=== PATIENT | female | born 1960 | race Caucasian/White ===

== ENCOUNTER → 2020-04-02 | Outpatient (CLI) | payer OTHER ==
--- NOTE | 2020-04-03 10:58 | MM ---
Reason for exam: screening (asymptomatic). Last mammogram was performed 13 years and 11 months ago. History: Benign left mammotome panel of the left breast, May 12, 2006. Cancelled Left Mammotome of the left breast, May 12, 2006. Taking hormonal contraceptives for 15 years. Physical Findings: A clinical breast exam by your physician is recommended on an annual basis and results should be correlated with mammographic findings. MG 3D Screening Mammo W/Cad Bilateral CC and MLO view(s) were taken. Prior study comparison: January 29, 2019, mammogram. November 21, 2017, mammogram. The breast tissue is heterogeneously dense. This may lower the sensitivity of mammography. There are benign appearing round calcifications bilaterally. Previous mammotome biopsy in the left breast. There is chronic nodularity in the right breast. There is no discrete abnormality. There is no discrete abnormality. ASSESSMENT: Benign, BI-RAD 2 RECOMMENDATION: Routine screening mammogram of both breasts in 1 year.
== END | disposition home or self-care (01) ==
LOC: RADMAMWWP 11:11
PROVIDERS: ATTEND Family Medicine
DX: Z12.31 Encounter for screening mammogram for malignant neoplasm of breast (principal)
CPT/HCPCS: 77063; 77067

== ENCOUNTER → 2020-12-23 | Day surgery (SDC) | payer OTHER ==
[2020-12-21 14:15] VITALS: BMI 30.5
[~2020-12-23] MED LIST: BALANCED SALT IRRIG SOLN COMB2 15 ML IRRIG.SOLN IRRIGATION ONE; CYCLOPENTOLATE 1% OPHTH SOLN 2 ML BTL OP PRN; DUOVISC KIT (GREEN BOX) INTRAOCULA ONE; EPINEPHrine (PF) 0.3 ML in BALANCED SALT IRRIG SOLN COMB2 500 ML IRRIGATION ONE; LACTATED RINGERS 1,000 ML IV SCH; LIDOCAINE 1% (10MG/ML) FOR IV START INTRADERMA PRN; LIDOCAINE 1% (PF) 10MG/ML VIAL SQ ONE; MIDAZOLAM 2 MG/2 ML VIAL ONE; MOXIFLOXACIN HCL 0.5% DROPS 3 ML BTL OP PRN; PHENYLEPHRINE 2.5% OPHTH DRP 2ML OP PRN; TETRACAINE 0.5% OPHTH (PF) DROPS 4 ML BTL OP PRN; TIMOLOL 0.5% OPHTH DROPS 5 ML BTL OP PRN; fentaNYL (PF) 50 MCG/ML 2 ML AMP ONE
[2020-12-23 10:37] VITALS: TEMP 98.7
[2020-12-23 10:48] LABS: Glucose,Whole Blood 111 mg/dL (75-99)
--- NOTE | 2020-12-23 12:21 | P.OP ---
Date of Procedure: 12/23/20 Preoperative Diagnosis: NS & POAG mild Postoperative Diagnosis: same Procedure(s) Performed: PIOL, OD & goniotomy Implants: MX60E 22.50 Anesthesia: MAC Surgeon: Rahat Luu Pathology: none sent Condition: stable Disposition: same day Indications for Procedure: blurry vision & glaucoma control Operative Findings: no complications
[2020-12-23 12:43] VITALS: BP 121/75; PULSE 77; RESP 16
--- NOTE | 2020-12-24 11:59 | OP ---
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 SURGEON: Dr. Rahat Luu. ANESTHESIA: Topical. ESTIMATED BLOOD LOSS: None. SPECIMEN TAKEN: None. NARRATIVE: After obtaining the appropriate consent, the patient was brought to the operating room where she was placed on cardiac, placed under cardiac monitoring, then prepped and draped in the usual sterile manner. She was approached from her right temporal side and at the 11 o'clock position an MVR blade was used to create a paracentesis port. Through this opening, 1% Xylocaine MPF 50:50 mix of balanced salt solution was injected into the anterior chamber. This was followed by Trypan blue which was left in the eye for approximately 1 minute. Following that period of time, balance salt solution was used to remove the dye from the anterior chamber which was then stabilized using Viscoat. At the 9 o'clock position, a 2.5 mm keratome was used to create a self-sealing corneal flap incision. The patient was then asked to rotate her head approximately 45 degrees away from the operative field and a gonio prism was placed on the patient's eye. Using a [place] dual blade keratome, a robin and meat method was used to remove the trabecular meshwork on the nasal side of the patient's eye for approximately 5 o'clock hours. The patient was then asked to rotate back to the normal supine position and a cystotome was introduced to begin a continuous tear capsulorrhexis which was completed using the Utrata forceps. Hydrodissection and hydrodelineation of the lens were accomplished with balanced salt solution. Phacoemulsification of the lens utilizing phaco chop was accomplished in 16.42 seconds at 12% power. Additional Xylocaine MPF was instilled into the anterior chamber. This was followed by removal of the remaining cortex under irrigation and aspiration as well as careful polishing of the posterior capsule in the capsule vacuum mode. Provisc was then used to stabilize the capsular bag and a Bausch and Lomb MX 60E 22.5 diopter posterior chamber intraocular lens was then inserted into the capsular bag without difficulty. Irrigation/ aspiration of the remaining viscoelastic from in and around the intraocular lens as well as the anterior chamber was accomplished without difficulty. A small remnant of trabecular meshwork was identified and was retrieved using the Utrata forceps. The eye was then brought to normal intraocular pressure through the paracentesis port and the incision was confirmed watertight. She then received 2 drops of 0.5% timolol followed by 2 drops of 0.5% moxifloxacin. She was then lightly patched and shielded in the usual manner. There were no complications from the procedure. She tolerated the procedure well and was returned to outpatient recovery in good condition. MMRADHA / LESLI: [id number] /
== END | disposition home or self-care (01) ==
LOC: OR 10:03
PROVIDERS: ATTEND Ophthalmology
DX: H25.13 Age-related nuclear cataract, bilateral (principal); H40.1131 Primary open-angle glaucoma, bilateral, mild stage; E11.36 Type 2 diabetes mellitus with diabetic cataract; H18.519 Endothelial corneal dystrophy, unspecified eye; H47.093 Other disorders of optic nerve, not elsewhere classified, bilateral; H40.033 Anatomical narrow angle, bilateral; H52.03 Hypermetropia, bilateral; E78.5 Hyperlipidemia, unspecified; I10 Essential (primary) hypertension; Z82.49 Family history of ischemic heart disease and other diseases of the circulatory system; Z84.1 Family history of disorders of kidney and ureter; Z79.84 Long term (current) use of oral hypoglycemic drugs; Z79.82 Long term (current) use of aspirin; Z79.899 Other long term (current) drug therapy
CPT/HCPCS: 66984; 65820; C1780; J2250; J0171; J3010; J2001

== ENCOUNTER → 2021-06-22 | Outpatient (CLI) | payer OTHER ==
--- NOTE | 2021-06-22 16:50 | BD ---
EXAMINATION TYPE: Axial Bone Density DATE OF EXAM: 06/22/2021 COMPARISON: NONE CLINICAL HISTORY: 61 years year old Female. ICD-10 CODE: M810 Height: 5'5 Weight: 202 FRAX RISK QUESTIONS: History of Fracture in Adulthood: y Secondary Osteoporosis: RISK FACTORS HISTORY OF: Diet low in dairy products/other sources of calcium: y Postmenopausal woman: y MEDICATIONS: Additional Medications: Metformin, blood pressure, eye drops Additional History: EXAM MEASUREMENTS: Bone mineral densitometry was performed using the Qiro System. Bone mineral density as measured about the Lumbar spine is: ----- L1-L4(G/cm2): 1.165 T Score Values are as follows: ----- L1: 0.3 ----- L2: 0.2 ----- L3: 0.1 ----- L4: 0.0 ----- L1-L4: 0.2 Bone mineral density about the R hip (g/cm2): 1.028 Bone mineral density about the L hip (g/cm2): 1.052 T Score values are as follows: -----R Neck: 1.028 -----L Neck: 1.052 -----R Total: 0.3 -----L Total: 0.3 FRAX%s: The graph provided illustrates a10.4 chance for a major osteoporotic fx and a 0.3 chance for the hips probability for fx in 10 years time. IMPRESSION: Normal (Values between +1 and -1 indicate normal bone mass). Consider repeating this study in 5 year s or sooner if there is some new clinical indication. NOTE: T-SCORE=SD OF THE YOUNG ADULT MEAN.
--- NOTE | 2021-06-23 15:03 | MM ---
Reason for exam: screening (asymptomatic). Last mammogram was performed 1 year and 3 months ago. History: Benign left mammotome panel of the left breast, May 12, 2006. Cancelled Left Mammotome of the left breast, May 12, 2006. Taking hormonal contraceptives for 15 years. Physical Findings: A clinical breast exam by your physician is recommended on an annual basis and results should be correlated with mammographic findings. MG 3D Screening Mammo W/Cad Bilateral CC and MLO view(s) were taken. Technologist: RT Minna (R)(M) Prior study comparison: April 02, 2020, bilateral MG 3d screening mammo w/cad. January 29, 2019, mammogram. The breast tissue is heterogeneously dense. This may lower the sensitivity of mammography. Stable benign calcifications. There is no discrete abnormality. No significant changes when compared with prior studies. ASSESSMENT: Benign, BI-RAD 2 RECOMMENDATION: Routine screening mammogram of both breasts in 1 year.
== END | disposition home or self-care (01) ==
LOC: RADMAMWWP 07:17
PROVIDERS: ATTEND Internal Medicine
DX: Z12.31 Encounter for screening mammogram for malignant neoplasm of breast (principal); Z78.0 Asymptomatic menopausal state
CPT/HCPCS: 77063; 77067; 77080

== ENCOUNTER 2021-06-23 07:14 | Day surgery (SDC) | payer OTHER ==
[2021-06-22 10:46] VITALS: BMI 34.1
[~2021-06-23 07:14] MED LIST changes: -BALANCED SALT IRRIG SOLN COMB2 15 ML IRRIG.SOLN IRRIGATION ONE; -CYCLOPENTOLATE 1% OPHTH SOLN 2 ML BTL OP PRN; -DUOVISC KIT (GREEN BOX) INTRAOCULA ONE; -EPINEPHrine (PF) 0.3 ML in BALANCED SALT IRRIG SOLN COMB2 500 ML IRRIGATION ONE; -LIDOCAINE 1% (PF) 10MG/ML VIAL SQ ONE; -MIDAZOLAM 2 MG/2 ML VIAL ONE; -MOXIFLOXACIN HCL 0.5% DROPS 3 ML BTL OP PRN; -PHENYLEPHRINE 2.5% OPHTH DRP 2ML OP PRN; -TIMOLOL 0.5% OPHTH DROPS 5 ML BTL OP PRN; -fentaNYL (PF) 50 MCG/ML 2 ML AMP ONE
[2021-06-23] MEDS: CYCLOPENTOLATE 1% OPHTH SOLN 2 ML BTL OP PRN ×3 (07:32→07:44)
[2021-06-23] MEDS: PHENYLEPHRINE 2.5% OPHTH DRP 2ML OP PRN ×3 (07:35→07:47)
[2021-06-23 07:37] VITALS: TEMP 98.1
[2021-06-23 07:43] LABS: Glucose,Whole Blood 125 mg/dL (75-99)
[2021-06-23] MEDS: TIMOLOL 0.5% OPHTH DROPS 5 ML BTL OP PRN ×3 (07:48→08:36)
[2021-06-23] MEDS: MOXIFLOXACIN HCL 0.5% DROPS 3 ML BTL OP PRN ×3 (07:48→08:36)
[2021-06-23] MEDS ORDERED: BALANCED SALT IRRIG SOLN COMB2 500 ML INTRAOCULA ONE ×3 (07:48→08:36)
[2021-06-23] MEDS ORDERED: LIDOCAINE 1% (PF) 10MG/ML VIAL MISCELLANE ONE ×3 (07:51→08:36)
[2021-06-23] MEDS ORDERED: IV FLUID CONTINUATION 1,000 ML IV ONE (08:15)
[2021-06-23] MEDS ORDERED: MIDAZOLAM 2 MG/2 ML VIAL ONE (08:17)
[2021-06-23] MEDS ORDERED: EPINEPHrine (PF) 0.3 ML in BALANCED SALT IRRIG SOLN COMB2 500 ML IRRIGATION ONE ×4 (08:18)
[2021-06-23] MEDS ORDERED: HYALURONATE SODIUM INTRAOCULAR 1 EACH SYRINGE (12MG/ML) INTRAOCULA ONE ×3 (08:18→08:36)
[2021-06-23] MEDS ORDERED: TRYPAN BLUE 0.06% SYRINGE 0.5 ML SYRINGE INTRAOCULA ONE (08:36)
--- NOTE | 2021-06-23 08:58 | P.OP ---
Date of Procedure: 06/23/21 Preoperative Diagnosis: NS & POAG mild Postoperative Diagnosis: same Procedure(s) Performed: PIOL & goniotomy OS Implants: MX60E 22.50 Anesthesia: MAC Surgeon: Rahat Luu Pathology: none sent Condition: stable Disposition: same day Indications for Procedure: blurry vision and better glaucoma control Operative Findings: no complications
[2021-06-23 09:03] VITALS: BP 119/77
[2021-06-23 09:17] VITALS: PULSE 77; RESP 16
--- NOTE | 2021-06-23 19:48 | OP ---
OPERATIVE REPORT DATE OF SURGERY: 06/23/2021. PROCEDURE: Phacoemulsification of cataract and intraocular lens implant of the left eye with goniotomy of the left eye. PREOPERATIVE DIAGNOSIS: Nuclear sclerosis and primary open-angle glaucoma, mild stage. POSTOPERATIVE DIAGNOSIS: Nuclear sclerosis and primary open-angle glaucoma, mild stage. SURGEON: Dr. Rahat Luu. ANESTHESIA: Topical. ESTIMATED BLOOD LOSS: Less than 5 mL. SPECIMEN TAKEN: None. PROCEDURE DESCRIPTION: After obtaining the appropriate consent, the patient was brought to the operating room. There she was placed under cardiac monitoring, prepped and draped in the usual sterile manner. She was approached from her left temporal side, and at the 5 o'clock position, an MVR blade was used to create a paracentesis port. Through this opening 1% Xylocaine MPF 50:50 mix with balanced salt solution was injected into the anterior chamber. This was followed by instillation of Trypan Blue, which was allowed to stay in the eye for about one minute. Balanced salt solution was then used to irrigate away the Trypan Blue and Amvisc was then used to stabilize the anterior chamber of the eye. At the 3 o'clock position, a 2.5 mm keratome was used to create a self-sealing corneal flap incision. At this point the patient was then asked to rotate her head approximately 45 degrees toward her right and maintain a gaze in that general direction. A gonio prism was placed on the patient's eye with easy identification of the trabecular meshwork. A [place] Dual Blade goniotomy knife was advanced across the anterior chamber, and using an inside-out technique the nasal trabecular meshwork was removed for approximately 5 clock-hours. She was then returned to the normal supine position and a cystotome was used to begin a continuous tear capsulorrhexis which was then completed using the Utrata forceps. Hydrodissection and hydrodelineation of the lens were accomplished with balanced salt solution. Phacoemulsification of the lens utilizing phaco chop was accomplished in 9.9 seconds at 16% power. Additional Xylocaine MPF was instilled into the anterior chamber. This was followed by removal of the remaining cortex under irrigation and aspiration as well as careful polishing of the posterior capsule in the capsule vacuum mode. Amvisc was then used to stabilize the capsular bag and a Bausch and Lomb MX 60E 22.5 diopter posterior chamber intraocular lens was then placed into the capsular bag without difficulty. The remaining viscoelastic was then removed from in and around the intraocular lens as well as the anterior chamber. The temporal incision was hydrated slightly and the eye was brought slightly above normal intraocular pressure through the paracentesis port. She then received two drops of 0.5% timolol followed by two drops of moxifloxacin, was then lightly patched and shielded in the usual manner. There were no complications from the procedure. She tolerated the procedure well and was returned to Outpatient Recovery in good condition. MMKAMERONL / IJN: [id number] /
== END 2021-06-23 09:40 | disposition home or self-care (01) ==
LOC: OR 07:14
PROVIDERS: ATTEND Ophthalmology
DX: H25.12 Age-related nuclear cataract, left eye (principal); H40.1131 Primary open-angle glaucoma, bilateral, mild stage; E11.36 Type 2 diabetes mellitus with diabetic cataract; I10 Essential (primary) hypertension; Z98.41 Cataract extraction status, right eye; Z79.84 Long term (current) use of oral hypoglycemic drugs; Z79.899 Other long term (current) drug therapy; Z79.82 Long term (current) use of aspirin; Z88.0 Allergy status to penicillin; Z88.2 Allergy status to sulfonamides; Z98.890 Other specified postprocedural states
CPT/HCPCS: 66984; 65820; C1780; J2250; J0171; J2001

== ENCOUNTER → 2022-07-28 | Outpatient (CLI) | payer OTHER ==
--- NOTE | 2022-07-29 07:13 | MM ---
Reason for Exam: Screening (asymptomatic). Last mammogram was performed 1 year(s) and 1 month(s) ago. Patient History: Menarche at age 13. First Full-Term at age 29. Late child-bearing (after 30). Postmenopausal. Currently using Hormonal Contraceptives, for 15 years. 05/12/2006, Benign Core Biopsy on the left side. 05/12/2006, Cancelled Left Mammotome on the left side. Risk Values: Faviola 5 year model risk: 2.3%. NCI Lifetime model risk: 9.8%. Prior Study Comparison: 01/29/2019 Screening Mammogram, Unknown. 04/02/2020 Bilateral Screening Mammogram, [facility]. 06/22/2021 Bilateral Screening Mammogram, [facility]. Tissue Density: The breast tissue is heterogeneously dense. This may lower the sensitivity of mammography. Findings: Analyzed By CAD. There are scattered small benign-appearing round calcifications redemonstrated throughout the bilateral breasts. There is mammotome biopsy clip in the left breast redemonstrated. Benign-appearing bilateral axillary lymph nodes are again seen. There is no suspicious new group of microcalcifications or new suspicious mass in either breast. Overall Assessment: Benign, BI-RAD 2 Management: Screening Mammogram of both breasts in 1 year. . Patient should continue monthly self-breast exams. A clinical breast exam by your physician is recommended on an annual basis. This exam should not preclude additional follow-up of suspicious palpable abnormalities. Note on Faviola scores and lifetime risk: 1. A Faviola score greater than 3% is considered moderate risk. If this is the case, consider specialist referral to assess eligibility for a risk reducing agent. 2. If overall lifetime risk for the development of breast cancer is 20% or higher, the patient may qualify for future screening with alternating mammogram and breast MRI. Electronically signed and approved by: Bry Goldstein M.D.
== END | disposition home or self-care (01) ==
LOC: RADMAMWWP 10:44
PROVIDERS: ATTEND Internal Medicine
DX: Z12.31 Encounter for screening mammogram for malignant neoplasm of breast (principal); Z78.0 Asymptomatic menopausal state
CPT/HCPCS: 77063; 77067

== ENCOUNTER → 2023-04-06 | Outpatient (CLI) | payer OTHER ==
--- NOTE | 2023-04-07 10:00 | CA ---
Transthoracic Echo Report Name: Corina Gibson Age: 63 Gender: F : 1960 Exam Date: 04/06/2023 14:07 Exam Location: [place] [facility] Ht (in): 67 Wt (lb): 190 Ordering Physician: Love Jackman MD Attending/Referring Phys: Love Jackman MD Installation Tech Priya Jacobo RDCS Procedure CPT: Indications: I35.8 AORTIC VALVE SCLEROSIS Cardiac Hx: Technical Quality: Fair Contrast 1: Total Dose (mL): Contrast 2: Total Dose (mL): MEASUREMENTS (Male / Female) Normal Values 2D ECHO LV Diastolic Diameter PLAX 4.1 cm 4.2 - 5.9 / 3.9 - 5.3 cm LV Systolic Diameter PLAX 2.1 cm IVS Diastolic Thickness 1.2 cm 0.6 - 1.0 / 0.6 - 0.9 cm LVPW Diastolic Thickness 1.0 cm 0.6 - 1.0 / 0.6 - 0.9 cm LV Relative Wall Thickness 0.5 RV Internal Dim ED PLAX 3.6 cm LA Volume 57.0 cm??? 18 - 58 / 22 - 52 cm??? LA Volume Index 27.9 cm???/m??? 16 - 28 cm???/m??? M-MODE Aortic Root Diameter MM 2.9 cm LA Systolic Diameter MM 4.6 cm LA Ao Ratio MM 1.6 AV Cusp Separation MM 1.6 cm DOPPLER AV Peak Velocity 153.0 cm/s AV Peak Gradient 9.4 mmHg AV Mean Velocity 100.4 cm/s AV Mean Gradient 4.6 mmHg AV Velocity Time Integral 29.8 cm LVOT Peak Velocity 113.7 cm/s LVOT Peak Gradient 5.2 mmHg LVOT Velocity Time Integral 26.5 cm MV Area PHT 3.1 cm??? Mitral E Point Velocity 117.9 cm/s Mitral A Point Velocity 95.0 cm/s Mitral E to A Ratio 1.2 MV Deceleration Time 248.5 ms MV E' Velocity 10.0 cm/s Mitral E to MV E' Ratio 11.8 TR Peak Velocity 213.1 cm/s TR Peak Gradient 18.2 mmHg Right Ventricular Systolic Press 22.1 mmHg FINDINGS Left Ventricle Mildly increased left ventricular wall thickness. Left ventricular cavity size normal. Normal left ventricular systolic function with no obvious regional wall motion abnormalities. Left ventricular ejection fraction is estimated at 55- 60%. Right Ventricle Normal right ventricular size and function. Right ventricular systolic pressure within normal limits. Right Atrium Normal right atrial size. Left Atrium Mildly increased left atrial volume. Mitral Valve Structurally normal mitral valve. No mitral stenosis. Mild mitral annular calcification. Mild to moderate mitral regurgitation. Aortic Valve Trileaflet aortic valve. No aortic valve stenosis or regurgitation. Tricuspid Valve Structurally normal tricuspid valve. Mild tricuspid regurgitation. Pulmonic Valve Trace pulmonic regurgitation. Pericardium No pericardial effusion. Aorta Normal size aortic root and proximal ascending aorta. CONCLUSIONS Normal LV systolic function [id number] mitral regurgitation Previewed by: Dr. Yon Solis MD (Electronically Signed) Final Date: 07 April 2023 09:59
== END | disposition home or self-care (01) ==
LOC: RADECHMAIN 13:49
PROVIDERS: ATTEND Internal Medicine
DX: I34.0 Nonrheumatic mitral (valve) insufficiency (principal); I35.8 Other nonrheumatic aortic valve disorders
CPT/HCPCS: 93306

== ENCOUNTER → 2023-04-06 | Outpatient (CLI) | payer OTHER ==
--- NOTE | 2023-04-06 15:37 | US ---
EXAMINATION TYPE: US carotid duplex BILAT DATE OF EXAM: 04/06/2023 COMPARISON: NONE CLINICAL INDICATION: Female, 63 years old with history of I65.23 OCCLUSION AND STENOSIS OF BILATERAL CAROTID; Hyperlipidemia, hypertension TECHNIQUE: Carotid duplex ultrasound examination. Indirect Doppler criteria was utilized. FINDINGS: EXAM MEASUREMENTS: RIGHT: Peak Systolic Velocity (PSV) cm/sec ----- Right CCA: 118.6 ----- Right ICA: 78.2 ----- Right ECA: 76.4 ICA/CCA ratio: 0.7 RIGHT: End Diastole cm/sec ----- Right CCA: 27.0 ----- Right ICA: 28.4 ----- Right ECA: 11.0 LEFT: Peak Systolic Velocity (PSV) cm/sec ----- Left CCA: 111.3 ----- Left ICA: 112.1 ----- Left ECA: 96.5 ICA/CCA ratio: 1.0 LEFT: End Diastole cm/sec ----- Left CCA: 29.9 ----- Left ICA: 31.8 ----- Left ECA: 26.7 VERTEBRALS (direction of flow): Right Vertebral: Antegrade Left Vertebral: Antegrade Rhythm: Normal MACHINE STRAP BUCKLER NOTES: *Intimal thickening seen bilaterally. *It was difficult to follow bilateral ICA d istally. Bilateral ICA dives quickly posterior. Orthopedic Brace Maker notes: *Prominent lymph node measuring 1.7 x 1.5 x 1 0.7 cm along the left neck, cortex measures 3.7 mm thick. Probably reactive/post inflammatory. Recommend clinical follow-up. Follow-up ultrasound in 2 to 3 mon ths to ensure stability/resolution. IMPRESSION: 1. No hemodynamically significant internal carotid artery stenosis on either side. 2. Borderline enlarged lymph node along the left side of the neck measuring up to 1.5 cm short axis. Recommend follow-up ultrasound in 2-3 months to ensure stability/resolution. Correlate clinically to exclude any suspicious clinical features. Criteria for Assigning % of Stenosis / Diameter reduction (Estimation based on the indirect measurements of the internal carotid artery velocities (ICA PSV). 1. Normal (no stenosis)=ICA PSV < 125 cm/s: ratio < 2.0: ICA EDV<40 cm/s. 2. Less than 50% stenosis=ICA PSV < 125 cm/s: ratio < 2.0: ICA EDV<40 cm/s. 3. 50 to 69% stenosis=ICA PSV of 125 to 230 cm/s: ration 2.0 ? 4.0: ICA EDV 40-100 cm/s. 4. Greater than 70% stenosis to near occlusion= ICA PSV > 230 cm/s: ratio > 4.0: ICA EDV > 100 cm/s. 5. Near occlusion= ICA PSV velocities may be low or undetectable: variable ratio and ICA EDV. 6. Total occlusion=unable to detect flow.
== END | disposition home or self-care (01) ==
LOC: RADUSWWP 14:44
PROVIDERS: ATTEND Internal Medicine
DX: R59.0 Localized enlarged lymph nodes (principal); I65.23 Occlusion and stenosis of bilateral carotid arteries; E78.5 Hyperlipidemia, unspecified; I10 Essential (primary) hypertension
CPT/HCPCS: 93880

== ENCOUNTER → 2023-06-13 | Outpatient (CLI) | payer OTHER ==
[2023-06-13 08:45] LABS: African American GFR (CKD) 76 (>60 ml/min/1.73 sqM); Blood Urea Nitrogen 20 mg/dL (7-17); Non-African American GFR(CKD) 66 (>60 ml/min/1.73 sqM)
--- NOTE | 2023-06-13 11:10 | CT ---
EXAMINATION TYPE: CT soft tissue neck w con DATE OF EXAM: 06/13/2023 COMPARISON: Ultrasound 04/06/2023 HISTORY: enlarged lymph nodes. abnormal US 04.06.23 CT DLP: 524.20 mGycm CONTRAST: Patient injected with 100ml mL of Isovue 300. TECHNIQUE: Axial images at 3 mm thick sections. Reconstructed images in the coronal plane and sagitt al plane are reviewed. FINDINGS: Limited CT sections are obtained the lung apices. The lung apices appear clear. CT neck: The torus tubarius and fossa of Rosenmuller are normal. Manager Ccu spaces are normal. Para nasal sinuses and mastoid air cells are clear. Parotid glands appear normal and symmetrical. Submandibular glands, are normal. Parapharyngeal spac es are normal. Small jugulodigastric lymph nodes are present bilaterally. A few small submandibular nodes are presen t. Submental spaces clear. No suspicious enlarged lymphadenopathy evident. Largest lymph node is on t he left jugulodigastric region measuring 0.8 cm transverse. The hypopharynx appears within normal limits. Vocal cord level appear symmetrical. Thyroid as visualized is normal. Osseous structures are normal. IMPRESSION: 1. Scattered small lymph nodes. No suspicious enlarged lymphadenopathy evident.
== END | disposition home or self-care (01) ==
LOC: RADCTMAIN 08:02
PROVIDERS: ATTEND Internal Medicine
DX: R59.0 Localized enlarged lymph nodes (principal)
CPT/HCPCS: 82565; 84520; 70491; 36415; Q9967

== ENCOUNTER → 2023-07-31 | Outpatient (CLI) | payer OTHER ==
--- NOTE | 2023-07-31 13:21 | MM ---
Reason for Exam: Screening (asymptomatic). Last screening mammogram was performed 12 month(s) ago. Patient History: Menarche at age 13. First Full-Term at age 29. Late child-bearing (after 30). Postmenopausal. Currently using Hormonal Contraceptives, for 15 years. 05/12/2006, Benign Core Biopsy on the left side. 05/12/2006, Cancelled Left Mammotome on the left side. Risk Values: Faviola 5 year model risk: 2.4%. NCI Lifetime model risk: 9.5%. Prior Study Comparison: 11/21/2017 Screening Mammogram, Unknown. 01/29/2019 Screening Mammogram, Unknown. 04/02/2020 Bilateral Screening Mammogram, [facility]. 06/22/2021 Bilateral Screening Mammogram, [facility]. 07/28/2022 Bilateral MG 3D screening mammo w/cad, [facility]. Tissue Density: There are scattered areas of fibroglandular density. Findings: Analyzed By CAD. Left breast biopsy clip. Right breast: There is no suspicious group of microcalcifications or new suspicious mass. Benign-appearing calcifications right breast. Left breast: There is no suspicious group of microcalcifications or new suspicious mass. Benign-appearing calcifications left breast. Overall Assessment: Benign, BI-RAD 2 Management: Screening Mammogram of both breasts in [address] [facility] will attempt to contact patient to return for supplemental views and ultrasound if indicated. Patient should continue monthly self-breast exams. A clinical breast exam by your physician is recommended on an annual basis. This exam should not preclude additional follow-up of suspicious palpable abnormalities. Note on Faviola scores and lifetime risk: 1. A Faviola score greater than 3% is considered moderate risk. If this is the case, consider specialist referral to assess eligibility for a risk reducing agent. 2. If overall lifetime risk for the development of breast cancer is 20% or higher, the patient may qualify for future screening with alternating mammogram and breast MRI. Electronically signed and approved by: Rodrigo Malone DO
== END | disposition home or self-care (01) ==
LOC: RADMAMWWP 07:53
PROVIDERS: ATTEND Internal Medicine
DX: Z12.31 Encounter for screening mammogram for malignant neoplasm of breast (principal); Z78.0 Asymptomatic menopausal state
CPT/HCPCS: 77063; 77067